=== PATIENT | female | born 1960 | race Caucasian/White ===

== ENCOUNTER → 2017-07-15 17:18 | Outpatient (CLI) | payer MEDICAID | END | disposition home or self-care (01) | LOC: D.MAMMO 08:30 | DX: N64.52 Nipple discharge (principal) ==

== ENCOUNTER 2019-11-30 08:00 | Outpatient (CLI) | payer MEDICAID | END 2019-11-30 23:59 | disposition home or self-care (01) | LOC: D.MAMMO 08:00 | PROVIDERS: ATTEND Family Medicine | DX: N63.21 Unspecified lump in the left breast, upper outer quadrant (principal) ==

== ENCOUNTER → 2019-12-08 07:42 | Outpatient (CLI) | payer MEDICAID | END | disposition home or self-care (01) | LOC: D.US 07:42 | PROVIDERS: ATTEND Family Medicine | DX: R92.8 Other abnormal and inconclusive findings on diagnostic imaging of breast (principal); N63.21 Unspecified lump in the left breast, upper outer quadrant ==

== ENCOUNTER → 2020-06-22 17:56 | Outpatient (CLI) | payer MEDICAID ==
[2020-06-22 19:25] LABS: BASOPHILS 0.5 % (0-2); EOSINOPHILS 10.1 % (0-7); HEMATOCRIT 33.7 % (36.0-48.0); HEMOGLOBIN 10.6 g/dL (12-16); IMMATURE GRANULOCYTES 0.5 % (0-5); MCH 30.5 pg (26.0-34.0); MCHC 31.5 g/dL (31.0-37.0); MCV 96.8 fL (80.0-100.0); MEAN PLATELET VOLUME 10.9 fL (7.4-10.4); MONOCYTES 12.6 % (2-11); NEUTROPHILS 48.3 % (40-80); PLATELET COUNT 173 10x3/uL (130-400); RBC 3.48 10x6/uL (4.00-5.40); WBC 4.4 10x3/uL (4.8-10.8)
[2020-06-22 19:29] LABS: CREATININE - SERUM 1.2 mg/dL (0.6-1.3)
[2020-06-22 19:30] LABS: ANION GAP 10.5 mmol/L (8-16); CALCIUM 8.7 mg/dL (8.5-10.1); CARBON DIOXIDE 27.5 mmol/L (21.0-32.0); VANCOMYCIN - TROUGH 8.2 ug/mL (10.0-20.0)
== END | disposition home or self-care (01) ==
LOC: D.LABREF 17:56
PROVIDERS: ATTEND Family Medicine
DX: N61.1 Abscess of the breast and nipple (principal); I10 Essential (primary) hypertension; C50.912 Malignant neoplasm of unspecified site of left female breast

== ENCOUNTER → 2020-06-27 13:49 | Outpatient (CLI) | payer MEDICAID ==
[2020-06-27 15:51] LABS: HEMATOCRIT 34.1 % (36.0-48.0); HEMOGLOBIN 10.8 g/dL (12-16); MCH 30.8 pg (26.0-34.0); MCHC 31.7 g/dL (31.0-37.0); MCV 97.2 fL (80.0-100.0); MEAN PLATELET VOLUME 10.7 fL (7.4-10.4); PLATELET COUNT 180 10x3/uL (130-400); RBC 3.51 10x6/uL (4.00-5.40); RDW 15.4 % (11.5-14.5); WBC 2.9 10x3/uL (4.8-10.8)
[2020-06-27 16:12] LABS: ANION GAP 11.8 mmol/L (8-16); CALCIUM 7.5 mg/dL (8.5-10.1); CARBON DIOXIDE 24.8 mmol/L (21.0-32.0); CREATININE - SERUM 1.3 mg/dL (0.6-1.3); POTASSIUM - SERUM 3.6 mmol/L (3.5-5.1); VANCOMYCIN - TROUGH 9.9 ug/mL (10.0-20.0)
[2020-06-27 16:32] LABS: BASOPHILS 1 % (0-2); EOSINOPHILS 5 % (0-7); LYMPHOCYTES 40 % (15-50); MONOCYTES 5 % (2-11); NEUTROPHILS 49 % (40-80); PLATELET ESTIMATE NORMAL; VACUOLES 2+
== END | disposition home or self-care (01) ==
LOC: D.LABREF 13:49
PROVIDERS: ATTEND Family Medicine
DX: T81.41XD Infection following a procedure, superficial incisional surgical site, subsequent encounter (principal); B95.7 Other staphylococcus as the cause of diseases classified elsewhere; N61.1 Abscess of the breast and nipple